=== PATIENT | female | born 1960 | race Caucasian/White ===

== ENCOUNTER 2018-01-12 10:41 | Inpatient (IN) | payer OTHER, MEDICAID ==
[~2018-01-12] VITALS: Ht 172.7 cm; Wt 82.9 kg
[2018-01-12] VITALS (13 sets, daily range): BP systolic 88–112; BP diastolic 46–64
[2018-01-12] MEDS ORDERED: AMOXICILLIN-CL1 EACH PO (10:44)
[2018-01-12] MEDS ORDERED: ACCUNEB SO1.25 MG/1 INH (10:44)
[2018-01-12] MEDS ORDERED: CELEXA10 MG PO (10:45)
[2018-01-12] MEDS ORDERED: TESSALON PERLE100 MG PO (10:45)
[2018-01-12] MEDS ORDERED: DEXAMETHASONE 44 M1 PO (10:45)
[2018-01-12] MEDS ORDERED: KEPPRA 500 MG500 M2 PO (10:46)
[2018-01-12] MEDS ORDERED: ROBITUSSIN100 MG/53 PO (10:46)
[2018-01-12] MEDS ORDERED: FOLIC ACID1 MG PO (10:46)
[2018-01-12] MEDS ORDERED: NORCO 5-325 TA1 EACH PO (10:46)
[2018-01-12] MEDS ORDERED: ZUPLENZ4 MG PO (10:47)
[2018-01-12] MEDS ORDERED: PROTONIX40 M1 PO (10:47)
[2018-01-12] MEDS ORDERED: COMPAZINE10 MG PO (10:48)
[2018-01-12 11:04] LABS: HEMATOCRIT 21.4 % (37.0-47.0); HEMOGLOBIN 7.4 gm/dL (12.0-15.0); MCH 29.9 pg (26.0-34.0); MCHC 34.5 g/dL (28.0-37.0); MCV 86.5 fL (80.0-100.0); MPV 8.6 fl. (7.2-11.1); NUCLEATED RBCS 0 /100WBC; RBC 2.47 mil/uL (4.20-5.00)
[2018-01-12 11:15] LABS: CALCIUM 7.3 mg/dL (8.5-10.1); CREATININE 0.8 mg/dL (0.6-1.3); POTASSIUM 3.8 mmol/L (3.5-5.1)
[2018-01-12 11:22] LABS: TOTAL BILIRUBIN 1.1 mg/dL (<0.1-1.0); TOTAL PROTEIN 6.4 g/dL (6.4-8.2); TROPONIN-I LEVEL 0.34 ng/mL (<0.06); WBC 1.6 thou/uL (4.0-11.0)
[2018-01-12 11:23] LABS: PLATELET COUNT* 10 thou/uL (150-400)
[2018-01-12 11:26] LABS: APTT 29.6 Seconds (25.0-31.3); INR 1.2; PROTIME 11.8 Seconds (9.20-11.50)
--- NOTE | 2018-01-12 11:47 | NUR ---
ISOLATION CART ORDERED
[2018-01-12 11:57] LABS: ABSOLUTE LYMPHOCYTES 0.7 thou/uL (0.8-5.3); ABSOLUTE NEUTROPHILS 0.9 thou/uL (1.6-8.1); ATYPICAL LYMPHS 6 %
[2018-01-12 11:58] LABS: PLATELET ESTIMATE DECREASED
[2018-01-12 11:59] LABS: TOXIC GRANULATION 1+
--- NOTE | 2018-01-12 13:54 | NUR ---
CARDIOLOGY AT BEDSIDE PERFORMING ECHO.
[2018-01-12 15:10] LABS: BE -1.4 mmol/L (-2 to +3); HCO3 22.4 mmol/L (22.0-26.0); PCO2 33.4 mmHg (35.0-45.0); pH 7.444 (7.340-7.450)
--- NOTE | 2018-01-12 15:19 | 2DMMODE ---
[place] [address] 2 D/M-MODE ECHOCARDIOGRAM Name: FARTUN QUEVEDO Room: [address] IN [facility]#: [id number] Admission: 01/12/18 Attend Phys: Jessica Horner, Discharge: Date of : 56 Date of Service: 01/12/18 1519 Report #: [id number] THIS REPORT FOR: //name// APPROVED REPORT Study performed: 01/12/2018 13:44:57 EXAM: Comprehensive 2D, Doppler, and color-flow Echocardiogram Patient Location: In-Patient Room #: ER Status: routine BSA: 1.88 HR: 91 bpm BP: 94/49 mmHg Rhythm: NSR Other Information Study Quality: Good Indications Elevated Troponin 2D Dimensions LVEF(%): 69.41 (>50%) IVSd: 12.52 (7-11mm) LVOT Diam: 21.62 (18-24mm) LVDd: 48.16 mm PWd: 10.40 (7-11mm) Ascending Ao: 28.80 (22-36mm) LVDs: 29.34 (25-40mm) Aortic Root: 34.83 mm Castellon's LVEF: 69.41 % Volumes Left Atrial Volume (Systole) LA ESV Index: 24.60 mL/m2 Aortic Valve AoV Peak Sukhdev.: 2.80 m/s AO Peak Gr.: 31.34 mmHg LVOT Max P.69 mmHg AO Mean Gr.: 19.58 mmHg LVOT Mean P.49 mmHg LVOT Max V: 1.08 m/s AO V2 VTI: 53.89 cm LVOT Mean V: 0.73 m/s YANNI (VTI): 1.52 cm2 LVOT V1 VTI: 22.32 cm Mitral Valve E/A Ratio: 1.12 [place] [address] 2 D/M-MODE ECHOCARDIOGRAM Name: FARTUN QUEVEDO Room: [address] IN [facility]#: [id number] Admission: 01/12/18 Attend Phys: Jessica Horner, Discharge: Date of : 56 Date of Service: 01/12/18 1519 Report #: [id number] MV Decel. Time: 157.47 ms MV E Max Sukhdev.: 1.16 m/s MV PHT: 45.67 ms MVA (PHT): 4.82 cm2 TDI E/Lateral E': 8.29 E/Medial E': 8.29 Medial E' Sukhdev.: 0.14 m/s Lateral E' Sukhdev.: 0.14 m/s Pulmonary Valve PV Peak Sukhdev.: 1.09 m/s PV Peak Gr.: 4.77 mmHg Tricuspid Valve TR Peak Gr.: 48.53 mmHg RVSP: 53.00 mmHg Left Ventricle The left ventricle is normal size. There is normal LV segmental wall motion. There is normal left ventricular wall thickness. Left ventricular systolic function is normal. The left ventricular ejection fraction is within the normal range. LVEF is 60-65%. The left ventricular diastolic function is normal. Right Ventricle The right ventricle is normal size. The right ventricular systolic function is normal. Atria The left atrium size is normal. The right atrium size is normal. Aortic Valve Mild aortic valve sclerosis. Mild aortic regurgitation. No hemodynamically significant valvular aortic stenosis. Mitral Valve The mitral valve is normal in structure. Mild mitral regurgitation. No evidence of mitral valve stenosis. Tricuspid Valve The tricuspid valve is normal in structure. Mild tricuspid regurgitation. The RVSP is 50-55 mmHg. Pulmonic Valve The pulmonary valve is normal in structure. There is no pulmonic [place] [address] 2 D/M-MODE ECHOCARDIOGRAM Name: FARTUN QUEVEDO Room: [address] IN [facility]#: [id number] Admission: 01/12/18 Attend Phys: Jessica Horner, Discharge: Date of : 56 Date of Service: 01/12/18 1519 Report #: [id number] Great Vessels The aortic root is normal in size. IVC is normal in size and collapses with >50% inspiration Pericardium There is no pericardial effusion. <Conclusion> The left ventricle is normal size. There is normal left ventricular wall thickness. Left ventricular systolic function is normal. The left ventricular ejection fraction is within the normal range. LVEF is 60-65%. The left ventricular diastolic function is normal. The right ventricle is normal size. The left atrium size is normal. Mild aortic valve sclerosis. Mild aortic regurgitation. No hemodynamically significant valvular aortic stenosis. The mitral valve is normal in structure. Mild mitral regurgitation. The tricuspid valve is normal in structure. IVC is normal in size and collapses with >50% inspiration There is no pericardial effusion. <ELECTRONICALLY SIGNED> By: Luis Armando Calvillo MD, FACC 01/12/18 1519 18 151 Luis Armando Calvillo MD, FACC /INF
--- NOTE | 2018-01-12 16:39 | EKG ---
[place] [address] ELECTROCARDIOGRAM REPORT Name: FARTUN QUEVEDO Room: [address] IN M.R.#: [id number] Admission: 01/12/18 Attend Phys: Jessica Horner MD Discharge: Date of : 56 Report #: [id number] THIS REPORT FOR: //name// [facility] ED Test Date: 2018-01-12 Test Time: 10:56:35 Pat Name: FARTUN QUEVEDO Department: Room: [facility] Gender: F Bed And Breakfast Operator: Bandar CORNEJO : 1960 Requested By: Edwin Santos Order Number: [id number] MD: Luis Armando Calvillo Measurements Intervals [place] Rate: 100 P: 59 IA: 137 QRS: 42 QRSD: 99 T: 18 QT: 363 QTc: 469 Interpretive Statements Sinus tachycardia RSR' in V1 or V2, right VCD or RVH No previous ECG available for comparison Electronically Signed On 01-12-2018 16:38:57 CDT by Luis Armando Calvillo [email or web address] <ELECTRONICALLY SIGNED> By: Luis Armando Calvillo MD, [facility] 01/12/18 2748 [id number] [id number] Luis Armando Calvillo MD, [facility] /EPI
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
[2018-01-13] VITALS (27 sets, daily range): BP systolic 64–141; BP diastolic 49–74
--- NOTE | 2018-01-13 03:36 | NUR ---
ASSUMED CARE OF PATIENT AT 1900. BLOOD INFUSING, TOLERATED WELL. PATIENT SOA, REQUESTED NONREBREATHER. ABLE TO BREATH EASIER. BACK TO NASAL CANULA AFTER 2 HOURS. ABLE TO VOICE NEEDING THE BEDPAN APPROPRIATELY. SPOKE WITH DAUGHTER BEFORE SHE WENT HOME FOR THE NIGHT. STATES FAMILY IS COMING IN TO TOWN IN THE NEXT WEEK OR SO AND THEY WILL BE DISCUSSING THE SEVERITY OF HER CONDITION. PATIENT AWARE THAT SHE HAS CANCER, BUT NOT AWARE OF THE EXTENT. NOT PROGRESSING TOWARDS POC GOALS AT THIS TIME.
[2018-01-13 04:31] LABS: MCHC 34.2 g/dL (28.0-37.0)
[2018-01-13 04:33] LABS: HEMATOCRIT 20.3 % (37.0-47.0); MCH 30.1 pg (26.0-34.0); MCV 87.8 fL (80.0-100.0); RBC 2.31 mil/uL (4.20-5.00); RDW-CV 16.3 % (10.5-14.5)
[2018-01-13 04:37] LABS: CALCIUM 6.7 mg/dL (8.5-10.1); CREATININE 0.6 mg/dL (0.6-1.3); POTASSIUM 4.3 mmol/L (3.5-5.1)
[2018-01-13 04:41] LABS: ALBUMIN 1.8 g/dL (3.4-5.0); MAGNESIUM 2.1 mg/dL (1.8-2.4); TOTAL BILIRUBIN 0.8 mg/dL (<0.1-1.0); TOTAL PROTEIN 5.9 g/dL (6.4-8.2)
--- NOTE | 2018-01-13 10:22 | NUR ---
WOUND CARE NOTE: CONSULT RECEIVED FOR DECUB SACRAL AREA. RIGHT SIDE OF SACRUM: STAGE 2 PRESSURE ULCER, RUPTURED BLISTER. PINK, MOIST WOUND BED. WOUND MEASURES 3X2X0.1. CLEANSED WITH WOUND CLEANSER, PATTED DRY. SKIN PREPPED. APPLIED AQUACEL AG AND SECURED WITH A BORDERED FOAM. LEFT SIDE OF SACRUM: STAGE 3 PRESSURE ULCER. PINK, MOIST, YELLOW WOUND BED. WOUND MEASURES 1X1.2X0.3. TWAN-WOUND WITH NEW EPITHELIUM. CLEANSED WITH WOUND CLEANSER, PATTED DRY. SKIN PREPPED. APPLIED AQUACEL AG INTO WOUND BED AND SECURED WITH BORDERED FOAM. COCCYX: STAGE 3 PRESSURE ULCER. PINK, MOIST, YELLOW WOUND BED. WOUND MEASURES 1.2X0.5X0.3. TWAN-WOUND MACERATED. CLEANSED WITH WOUND CLEANSER, PATTED DRY. SKIN PREPPED. APPLIED AQUACEL AG INTO WOUND BED AND SECURED WITH BORDERED FOAM. EDUCATED PATIENT AND DAUGHTER IN ORDER TO HEAL THE WOUND, WE HAD TO KEEP THE PATIENT OFF OF THE WOUNDS AND USE WEDGES TO TURN SIDE TO SIDE. COMMUNICATED UNDERSTANDING AND PATIENT ALLOWED US TO USE WEDGES AND TURN TO RIGHT SIDE. LOW AIR LOSS FUNCTION TURNED ON BED. EDUCATED PATIENT AND DAUGHTER ON THIS FUNCTION, COMMUNICATED UNDERSTANDING. RECOMMEND TURN Q2 HOURS, KEEP OFF WOUNDS LOW AIR LOSS MATTRESS-ON ENCOURAGE GOOD NUTRITION AND HYDRATION
--- NOTE | 2018-01-13 10:25 | NUR ---
SPOKE WITH PT. DTR NOT HERE AT THIS TIME. PT HAS RECENTLY BEEN DIAGNOSED WITH MET LUNG CANCER. SHE HAS [place] AND HAD BEEN STAYING WITH HER SON, SHE HAS BEEN GETTING CHEMO. SHE NOW IS STAYING WITH HER DTR IN [place]. SHE DOES NOT HAVE HOME O2. PT ANSWERS DIRECT QUESTIONS, DOESN'T VOLUNTEER MUCH INFORMATION. PER NURSING, THE DAUGHTER WAS TALKING TO THE DOCTOR IN FRONT OF THE PT AND SAID THAT SHE HAD BEEN TOLD PT HAS 6 MONTHS OR LESS TO LIVE. NURSING BELIEVES THIS WAS NEW INFORMATION TO THE PT OR SHE DIDN'T REMEMBER HEARING IT BEFORE. PT HAS BEEN CRYING THIS MORNING. DISCUSSED ROLE OF CASE MGT, WILL CONTINUE TO FOLLOW TO ASSIST WITH DISCHARGE PLANNING AND PROVIDE SUPPORT TO PT AND FAMILY.
--- NOTE | 2018-01-13 10:37 | NUR ---
Nutrition: Pt admitted with lung cancer with METS to brain. Assessed for open wounds on buttocks. Per ICU rounds, pt is eating well on Regular diet. Wt: 171#. Alb 1.8, prealb 10.2. Apparently, pt was given a short time to live. RD will not order any nutritional supplements at this time. If desired, Boost+ and Beneprotein supplements are available on galleys. Severely depleted visceral protein stores. Will defer nutrition unless otherwise consulted.
--- NOTE | 2018-01-13 12:18 | NUR ---
PT NPO FOR POSSIBLE IVC FILTER PLACEMENT. ALSO, PATIENT PLACED ON BIPAP AT 1130 WELL.
[2018-01-13 13:13] LABS: BE -2.4 mmol/L (-2 to +3); HCO3 21.3 mmol/L (22.0-26.0); PCO2 32.2 mmHg (35.0-45.0); PO2 74.2 mmHg (75.0-100.0); pH 7.438 (7.340-7.450)
[2018-01-13 14:41] LABS: HEMATOCRIT 26.8 % (37.0-47.0)
[2018-01-13 14:42] LABS: HEMOGLOBIN 9.3 gm/dL (12.0-15.0)
[2018-01-13 18:04] LABS: CALCIUM 6.6 mg/dL (8.5-10.1); CREATININE 0.5 mg/dL (0.6-1.3); MAGNESIUM 1.9 mg/dL (1.8-2.4); POTASSIUM 3.6 mmol/L (3.5-5.1)
[2018-01-13 18:14] LABS: BASOPHILS 0.2 %; EOSINOPHILS 0.1 %; HEMATOCRIT 26.9 % (37.0-47.0); HEMOGLOBIN 9.2 gm/dL (12.0-15.0); LYMPHOCYTES 14.6 %; MCH 30.5 pg (26.0-34.0); MCHC 34.1 g/dL (28.0-37.0); MCV 89.3 fL (80.0-100.0); MONOCYTES 14.2 %; MPV 8.2 fl. (7.2-11.1); NUCLEATED RBCS 0 /100WBC; POLYS 70.9 %; RBC 3.01 mil/uL (4.20-5.00)
[2018-01-13 18:18] LABS: ABSOLUTE LYMPHOCYTES 0.7 thou/uL (0.8-5.3); ABSOLUTE MONOCYTES 0.7 thou/uL (0.0-1.2); ABSOLUTE NEUTROPHILS 3.5 thou/uL (1.6-8.1); WBC 4.9 thou/uL (4.0-11.0)
[2018-01-13 18:20] LABS: PLATELET COUNT* 14 thou/uL (150-400)
--- NOTE | 2018-01-13 18:30 | NUR ---
PT INTUBATED DUE TO DECLINE IN RESPIRATORY STATUS. PT WAS NOT MAINTAINING OXYGENATION ON 100% BIPAP. CHEST XRAY EXAMINED BY MD AND IT APPEARED TO BE WORSE. RIGHT PORT ACCESSED BUT UNABLE TO PULL BLOOD BACK FROM. MARISCAL PLACED DUE TO BEING VENTILATED. OG PLACED FOR DECOMPRESSION. Q2H TURNS SIDE TO SIDE FOR WOUNDS ON COCCYX. 1X LOOSE STOOLS, C-DIFF SAMPLE SENT.
[2018-01-13 19:10] LABS: BE -5.4 mmol/L (-2 to +3); HCO3 20.5 mmol/L (22.0-26.0); PCO2 41.8 mmHg (35.0-45.0); PO2 94.1 mmHg (75.0-100.0); pH 7.309 (7.340-7.450)
[2018-01-13 23:42] LABS: HEMOGLOBIN 9.7 gm/dL (12.0-15.0); MCH 30.1 pg (26.0-34.0); MCHC 34.5 g/dL (28.0-37.0); MCV 87.3 fL (80.0-100.0); MPV 7.8 fl. (7.2-11.1); RBC 3.21 mil/uL (4.20-5.00); RDW-CV 15.7 % (10.5-14.5); WBC 5.3 thou/uL (4.0-11.0)
[2018-01-13 23:48] LABS: CALCIUM 6.9 mg/dL (8.5-10.1); CREATININE 0.8 mg/dL (0.6-1.3); POTASSIUM 3.6 mmol/L (3.5-5.1)
[2018-01-13 23:49] LABS: APTT 26.3 Seconds (25.0-31.3); INR 1.1; PROTIME 10.7 Seconds (9.20-11.50)
[2018-01-14] VITALS (18 sets, daily range): BP systolic 83–122; BP diastolic 48–75
[2018-01-14 04:07] LABS: HEMATOCRIT 24.5 % (37.0-47.0); HEMOGLOBIN 8.4 gm/dL (12.0-15.0); MCH 30.1 pg (26.0-34.0); MCHC 34.4 g/dL (28.0-37.0); MCV 87.5 fL (80.0-100.0); MPV 8.1 fl. (7.2-11.1); RBC 2.81 mil/uL (4.20-5.00); RDW-CV 15.9 % (10.5-14.5); WBC 4.6 thou/uL (4.0-11.0)
[2018-01-14 04:20] LABS: APTT 28.4 Seconds (25.0-31.3); INR 1.1
[2018-01-14 04:27] LABS: ALBUMIN 2.8 g/dL (3.4-5.0); CALCIUM 6.9 mg/dL (8.5-10.1); CREATININE 0.9 mg/dL (0.6-1.3); POTASSIUM 3.9 mmol/L (3.5-5.1); TOTAL PROTEIN 6.5 g/dL (6.4-8.2)
--- NOTE | 2018-01-14 06:55 | NUR ---
MINIMAL PROGRESSION TOWARDS GOALS, SEE COMPUTERIZED ASSESSMENT CHARTING FOR DETAILS, RT DECREASED FIO2 100% TO 90% ON VENTILATOR, TITRATED OFF OF PROPOFOL PER ORDER, VERSED AND FENTANYL GTT FOR SEDATION, PLATELET DECREASED 28,000, SR-ST TRACING SALES ACCOUNT MANAGER, BLOODY SPUTUM WITH INLINE SUCTIONING, CLEAR THIN SPUTUM NOTED WITH ORAL SUCTIONING, NO BM DURING SHIFT, NO ADVERSE EFFECTS FROM IV ANTIBIOTICS, UPDATED DAUGHTER VIA TELEPHONE THIS AM, LASIX HELPFUL FOR DIURESIS 700CC TIMO CLOUDY WITH SEDIMENT URINE OUT, BED IN LOW AND LOCKED POSITON, HOURLY ROUNDING DONE PER POLICY.
--- NOTE | 2018-01-14 08:35 | EKG ---
[place] [address] ELECTROCARDIOGRAM REPORT Name: FARTUN QUEVEDO Room: [address] ADM IN .R.#: [id number] Admission: 01/12/18 Attend Phys: Jessica Horner MD Discharge: Date of : 56 Report #: [id number] THIS REPORT FOR: //name// [facility] Test Date: 2018-01-13 Test Time: 18:53:36 Pat Name: FARTUN QUEVEDO Department: Room: [address] Gender: F Cardiac/Vascular Sonographer: ASHA : 1960 Requested By: Melody Uribe Order Number: [id number] Parmjit MD: Stevenson Euceda Measurements Intervals [place] Rate: 105 P: 43 TX: 145 QRS: 53 QRSD: 102 T: 19 QT: 383 QTc: 507 Interpretive Statements Sinus tachycardia Atrial premature complexes RSR' in V1 or V2, right VCD or RVH Borderline prolonged QT interval Compared to ECG 01/12/2018 10:56:35 Atrial premature complex(es) now present Electronically Signed On 01-14-2018 8:35:36 CDT by Stevenson Euceda [email or web address] <ELECTRONICALLY SIGNED> By: Stevenson Euceda MD, FACC 01/14/18 0835 185 185 Stevenson Euceda MD, FAC /EPI
[2018-01-14 09:52] LABS: BE -4.8 mmol/L (-2 to +3); HCO3 22.4 mmol/L (22.0-26.0); PO2 106.8 mmHg (75.0-100.0)
[2018-01-14 09:57] LABS: PCO2 51.8 mmHg (35.0-45.0); pH 7.254 (7.340-7.450)
--- NOTE | 2018-01-14 14:19 | NUR ---
RECEIVED PT FROM VESTA OLSON. ASSESSMENTS CHARTED. AFEBRILE. PT SEDATED WITH FENTANYL AND VERSED AND STILL ON VENT. PRESSURES SOFT. LOW URINE OUTPUT. LASIX GIVEN AND KADIE ORDERED IF NEEDED. OG TO LIS. FAMILY IS AT BEDSIDE AND TALKING ABOUT POSSIBLY WITHDRAWING CARE IF PT HAS NOT IMPROVED IN THE NEXT COUPLE OF DAYS. WILL CONTINUE TO MONITOR.
--- NOTE | 2018-01-14 20:08 | NUR ---
RECIEVED REPORT AND ASSUMED CARE OF PT AT 1900. PT INTUBATED AND SEDATED ON VENTILATOR WITH VERSED AND PROPOFOL DRTP.
[2018-01-15] VITALS (10 sets, daily range): BP systolic 78–99; BP diastolic 48–60
[2018-01-15 03:05] LABS: HEMATOCRIT 23.8 % (37.0-47.0); HEMOGLOBIN 7.8 gm/dL (12.0-15.0); MCHC 32.9 g/dL (28.0-37.0); MCV 91.2 fL (80.0-100.0); MPV 8.7 fl. (7.2-11.1); NUCLEATED RBCS 0 /100WBC; RBC 2.61 mil/uL (4.20-5.00); RDW-CV 16.6 % (10.5-14.5); WBC 12.4 thou/uL (4.0-11.0)
[2018-01-15 03:14] LABS: PLATELET COUNT* 32 thou/uL (150-400)
[2018-01-15 03:33] LABS: ALBUMIN 2.4 g/dL (3.4-5.0); CALCIUM 6.2 mg/dL (8.5-10.1); MAGNESIUM 2.3 mg/dL (1.8-2.4); POTASSIUM 4.8 mmol/L (3.5-5.1); TOTAL BILIRUBIN 0.8 mg/dL (<0.1-1.0); TOTAL PROTEIN 5.9 g/dL (6.4-8.2)
[2018-01-15 05:15] LABS: ABSOLUTE LYMPHOCYTES 0.1 thou/uL (0.8-5.3); ABSOLUTE MONOCYTES 1.1 thou/uL (0.0-1.2); ABSOLUTE NEUTROPHILS 11.2 thou/uL (1.6-8.1)
[2018-01-15 05:17] LABS: ANISOCYTOSIS 1+; CLUMPED PLTS OCCASIONAL; PLATELET ESTIMATE DECREASED; POLYCHROMASIA 1+
[2018-01-15 05:18] LABS: TOXIC GRANULATION 1+
--- NOTE | 2018-01-15 07:36 | NUR ---
RECEIVED REPORT FROM VESTA PRABHAKAR. ASSESSMENT CHARTED. AFEBRILE. PT ON VENT AND SEDATED WITH FENTANYL AND VERSED. I UNITS OF PLATELETS TRANSFUSED YESTERDAY. PRESSURES SOFT AND WILL START KADIE IF NEEDED. OG TO LIS. DR. NATARAJAN WILL MEET WITH FAMILY AT 1000 TO DISCUSS PT STATUS. WILL CONTINUE TO MONITOR.
[2018-01-15 09:12] LABS: BE -7.2 mmol/L (-2 to +3); HCO3 21.4 mmol/L (22.0-26.0)
[2018-01-15 09:14] LABS: PCO2 59.8 mmHg (35.0-45.0); pH 7.172 (7.340-7.450)
--- NOTE | 2018-01-15 16:08 | NUR ---
FAMILY HAS NOW DECIDED TO MAKE PT COMFORT CARE AND WOULD LIKE TO WITHDRAW CARE. NOTIFIED PHYSICAN AND HAVE ORDERS TO EXTUBATE. FAMILY AT BEDSIDE AND WILL CONTINUE TO EVALUATE FOR NEEDS.
--- NOTE | 2018-01-15 18:19 | NUR ---
PT TRANSFERRED TO ROOM 228.COMFORT CARE.AGREE WITH PREVIOUS NURSES ASSESSMENT.PT REMAINS 15L O2 HIGH FLOW.MORPHINE 8MG GIVEN.SCOPALAMINE PATCH APPLIED. ORAL CARE GIVEN.MARISCAL SECURE AND IN PLACE.FAMILY AT BEDSIDE. PT AT 181.TWO RN CONFIRMED .CHARGE NURSE NOTIFIED.LIFE SKILLS COACH NOTIFIED.DOCTOR NOTIFIED. SUMMARY PAPERWORK COMPLETED.
--- NOTE | 2018-01-15 23:17 | NUR ---
TIN HOME PART TIME FLEXIBLE CLERK HERE. BODY REMOVED.
--- NOTE | 2018-01-16 07:55 | CON ---
[address] [address] CONSULTATION Name: FARTUN QUEVEDO Room: [address] IN ..#: [id number] Admission: 01/12/18 Attend Phys: Jessica Horner MD Discharge: 01/15/18 Date of : 56 Report #: [id number] THIS REPORT FOR: //name// CC: Jessica MENDOZASYKESTONGiovanni DATE OF SERVICE: 01/13/2018 ATTENDING PHYSICIAN: Dr. Jessica Horner. The patient is located in the ICU bed 1. INDICATION FOR CONSULTATION: Acute hypoxic respiratory failure, stage IV lung cancer, immunosuppressed, pneumonia. CLINICAL SUMMARY: The patient is a 57-year-old female, recent smoker with multiple medical problems. The patient was admitted a day or so ago for near syncopal episode. She was diagnosed with metastatic lung cancer within the last 6 weeks. This was all done in [place], [place] and so records are fairly scarce. The patient was homeless and appears she is now living with her daughter in [place]. The patient really does not understand the severity of her lung disease. She has had some nausea and vomiting. She underwent a second or third round of chemotherapy last week. It appears to be carboplatin and Taxol, I am not certain and she had some loose stools and she had some shortness of air. She did have a dry cough. Denies any fever. She is not the most accurate historian. She was on 3-4 liters yesterday. This morning, she is up to 100% nonrebreather and then, she was just recently placed on BiPAP because of desaturation. PAST MEDICAL HISTORY: Again, anemia, elevated troponins, leukopenia, lung cancer stage 4, believed to be non small cell, not exactly certain of cell type [place], [place], respiratory failure and some thrombocytopenia due to chemotherapy. ALLERGIES: SHE HAS ALLERGIES TO HYDROCODONE, WHICH GIVES HER NAUSEA AND VOMITING. MEDICATIONS: Her outpatient medications, she was on Augmentin 875 one p.o. t.i.d., benzonatate Perles 100 mg t.i.d., citalopram 10 mg daily. She is on Decadron tablets 4 mg t.i.d., could been tapering off from chemotherapy, folic acid 1 mg daily, guaifenesin 200 mg 4 hours, hydrocodone, which is on hold and then Zofran 4 mg IV q. 8 hours, Protonix 40 mg daily. PAST SURGICAL HISTORY: She has had a lung biopsy. It [place] [address] CONSULTATION Name: FARTUN QUEVEDO Room: [address] IN M.R.#: [id number] Admission: 01/12/18 Attend Phys: Jessica Horner MD Discharge: 01/15/18 Date of : 56 Report #: [id number] spread to the spine, also has liver mets on her CT as well as adrenal mets, appears to be stage IV. FAMILY HISTORY: Negative for premature cardiopulmonary disease. SOCIAL HISTORY: The patient was homeless in [place]. Her daughter lives in [place] who has brought her to live with her here. A pack a day smoker and she smoked for 45-50 years and just quit 6 weeks ago. Denies any alcohol or illicit drug use to me. REVIEW OF SYSTEMS: A 14-point review of systems was attempted, all was negative except for cough and shortness of breath as mentioned in HPI. PHYSICAL EXAMINATION: GENERAL: Somewhat thin, frail 57-year-old female, appears older than her stated age, in mild distress. She is currently on BiPAP. VITAL SIGNS: Blood pressure is 127/70 on no pressors, heart rate is 90, respirations were 24-28 and somewhat labored. Some use of accessory muscles. Temperature is 36.6 degrees, saturation is 94% on the current BiPAP 80%. She is 5 feet 8 inches tall, weight 77 kilograms or 170 pounds, BMI is 26. HEENT: Nares and pharynx otherwise are clear. Mucous membranes appear dry. No increase in jugular venous pressure. NECK: No cervical or supraclavicular adenopathy. She has a Port-A-Cath in the right upper chest. It is currently accessed. CHEST: Shows rhonchi and wheeze in the right lower lobe inspiratory and expiratory wheeze. There is no cervical or supraclavicular adenopathy. Left chest shows rhonchi and expiratory wheeze also, some use of accessory muscles. CARDIOVASCULAR: Shows a 1/6 aortic outflow murmur with radiation to the carotids. Heart rate 93. There is no delayed upstroke, no S3 is noted. ABDOMEN: Soft. Liver appears prominent, palpable 2 cm below the costal margin. It is nontender. EXTREMITIES: Without cyanosis, clubbing or edema. NEUROLOGIC: Grossly intact. She moves all fours to commands. Nonfocal. LABORATORY DATA: When she was admitted on 01/12/2018, hemoglobin was 7.4, white count was 1600, platelets were 10,000. This morning on 01/13/2018, her hemoglobin was 7, white count was 1.0 and platelets were 42,000, absolute neutrophil count is 1300 at this time, again platelets today are 42,000. Chemistry: Sodium is 131, potassium is 4.3, BUN was 7, creatinine 0.6 and a carbon dioxide of 24, glucose is 139, calcium is 6.7. Total protein was 5.9, albumin is 1.8. Serology is pending. ABGs just back on the BiPAP on 80% and 10/6 with a backup rate of 12, pO2 of 74, pH 7.44, pCO2 is 32, bicarbonate is 21, sat was 93%. Her venous Dopplers were positive for bilateral pulmonary DVT and left popliteal vein extending from the calf veins. No clots seen in the left common femoral or deep femoral veins. [place] [address] CONSULTATION Name: FARTUN QUEVEDO Room: [address]#: [id number] Admission: 01/12/18 Attend Phys: Jessica Horner MD Discharge: 01/15/18 Date of : 56 Report #: [id number] IMPRESSION: 1. Metastatic lung cancer stage IV with brain, spine, liver and adrenal mets extremely poor prognosis, under chemotherapy. 2. Immune suppressed pneumonia. 3. Right leg thrombosis, most likely extending into deep venous thrombosis. No definite evidence of pulmonary emboli at least at this time. Anticoagulation is problematic with thrombocytopenia of platelet counts 10-40,000. No active bleeding at this time though. 4. Neutropenia. 5. Thrombocytopenia secondary to chemotherapy. PLAN: Agree with aggressive 3-drug therapy for antibiotics, possibly an IVC filter is being considered, I agree with that, but the platelets being low, may have to have platelet transfusions before this. Agree with BiPAP with increase over to 08/26. We will give her a little higher PEEP levels and see if can improve her pO2 a little bit. Her prognosis even though she just recently diagnosed was extremely guarded. I have not had a chance to talk to the daughter. The patient may end up being intubated. I think she would do poorly on the ventilator. She may need another central line and she has a Port-A-Cath right now on the right, but may need more access, a triple lumen cath on the left, etc. at some point in time again if platelets will allow. We will see if we can keep her off the ventilator. She appears to be a full code blue at this time and also see where the IVC filter is going. This has been a 37 minute critical care consult. <ELECTRONICALLY SIGNED> By: Shaneka Mayorga MD 01/16/18 0755 [id number] Marks MD /nt
--- NOTE | 2018-01-17 08:55 | NUR ---
RECIEVED O.T. ORDERS. O.T. EVAL NOT COMPLETED DUE TO PT. INTUBATED 01/14 AND PLACED ON HOLD. PT. LATER PUT ON COMFORT MEASURES AND 01/15.
--- NOTE | 2018-01-23 11:16 | NUR ---
entered onto restraint log 01/15/18.
== END 2018-01-15 23:12 | DRG 208 ==
LOC: M.ERS 10:41 → M.ICU 13:06 → M.TBA-ER 13:06 → M.ICU 14:47 → M.2W 01-15 17:31
PROVIDERS: Emergency Medicine Emergency Medical Services; Internal Medicine; Internal Medicine Critical Care Medicine; Internal Medicine Pulmonary Disease; ADMIT Internal Medicine
PROC: 30233N1 Transfusion of Nonautologous Red Blood Cells into Peripheral Vein, Percutaneous Approach (ICD-10-PCS; principal; 2018-01-13)
PROC: 0BH17EZ Insertion of Endotracheal Airway into Trachea, Via Natural or Artificial Opening (ICD-10-PCS; principal; 2018-01-13)
PROC: 5A1945Z Respiratory Ventilation, 24-96 Consecutive Hours (ICD-10-PCS; principal; 2018-01-13)
PROC: 5A09357 Assistance with Respiratory Ventilation, Less than 24 Consecutive Hours, Continuous Positive Airway Pressure (ICD-10-PCS; principal; 2018-01-13)
PROC: 30233R1 Transfusion of Nonautologous Platelets into Peripheral Vein, Percutaneous Approach (ICD-10-PCS; principal; 2018-01-13)
DX: J18.9 Pneumonia, unspecified organism (principal); E43 Unspecified severe protein-calorie malnutrition; J96.01 Acute respiratory failure with hypoxia; J96.02 Acute respiratory failure with hypercapnia; N17.0 Acute kidney failure with tubular necrosis; C34.11 Malignant neoplasm of upper lobe, right bronchus or lung; R65.10 Systemic inflammatory response syndrome (SIRS) of non-infectious origin without acute organ dysfunction; C78.7 Secondary malignant neoplasm of liver and intrahepatic bile duct; C79.31 Secondary malignant neoplasm of brain; C79.70 Secondary malignant neoplasm of unspecified adrenal gland; C79.51 Secondary malignant neoplasm of bone; D61.818 Other pancytopenia; I82.432 Acute embolism and thrombosis of left popliteal vein; A04.72 Enterocolitis due to Clostridium difficile, not specified as recurrent; R04.89 Hemorrhage from other sites in respiratory passages; C79.49 Secondary malignant neoplasm of other parts of nervous system; I08.3 Combined rheumatic disorders of mitral, aortic and tricuspid valves; Z68.27 Body mass index [BMI] 27.0-27.9, adult; Z79.899 Other long term (current) drug therapy; Z88.8 Allergy status to other drugs, medicaments and biological substances